=== PATIENT | female | born 1940 | race Caucasian/White ===

== ENCOUNTER 2023-03-08 16:35 | Inpatient (IN) | payer MEDICARE ==
[2023-03-08 17:22] LABS: #Eosinphils 0.1 thou/uL (0.0-0.7); #Monocytes 0.8 thou/uL (0.11-0.59); %Basophils 0.5 % (0.0-1.0); %Lymphocytes 9.6 % (21.0-51.0); %Monocytes 10.6 % (0.0-10.0); Hematocrit 37.8 % (36.0-47.0); Hemoglobin 12.7 g/dL (12.0-16.0); Mean Corpuscular HGB CONC 33.6 g/dL (32.0-36.0); Mean Corpuscular Hemoglobin 31.4 pg (27.0-31.0); Mean Corpuscular Volume 93.6 fl (78.0-98.0); Mean Platelet Volume 9.8 fL (7.4-10.4); Platelet Count 220 10x3/uL (130-400); RBC Distribution Width 13.9 % (11.5-14.5); Red Blood Cell (RBC) Count 4.04 mill/uL (4.20-5.40); White Blood Cell (WBC) Count 7.6 10x3/uL (4.8-10.8)
[2023-03-08 17:49] LABS: Bacteria/HPF 3+ HPF (None Seen); Bilirubin Negative (Negative); Blood, Urine Negative (Negative); CAUTI Indications for Culture Alt mental st,lethar; Clarity Clear (Clear); Glucose, Urine (Dipstick) Normal (Negative); Ketone, Urine Trace mg/dL (Negative); Leukocyte Negative Leu/uL (Negative); Nitrite Negative (Negative); Protein, Urine (Dipstick) Negative (Neg-Trace); RBC/HPF 0-3 HPF (0-3); Specific Gravity, Urine 1.012 (1.002-1.036); Squamous Epithelial 0-3 HPF (0-3); Urobilinogen Normal mg/dL (Less than 2); WBC/HPF 0-3 HPF (0-3)
[2023-03-08 17:51] LABS: Urine Culture Reflex No No
[2023-03-08] MEDS ORDERED: Boostrix 0.5 ML (Tdap) VIAL (>/=7 yrs of age) ONE (17:57)
[2023-03-08 18:14] LABS: ALT (SGPT) 9 U/L (8-55); AST (SGOT) 21 U/L (5-34); Albumin 3.8 g/dL (3.4-4.8); Alkaline Phosphatase 71 U/L (40-110); Anion Gap 17 mmol/L (10-20); BUN (Urea Nitrogen) 23 mg/dL (9.8-20.1); Calc. Creatinine Clearance 0 mL/min (70-130); Calcium 9.6 mg/dL (7.8-10.44); Carbon Dioxide 22 mmol/L (23-31); Chloride 101 mmol/L (98-107); Estimated GFR 58; Globulin 3.6 g/dL (2.4-3.5); Glucose 90 mg/dL (83-110); Lipase 7 U/L (8-78); Magnesium 1.8 mg/dL (1.6-2.6); Potassium 4.2 mmol/L (3.5-5.1); Protein, Total 7.4 g/dL (5.8-8.1); Sodium 136 mmol/L (136-145)
[2023-03-08 21:54] LABS: Troponin I 0.029 ng/mL (< 0.028)
[2023-03-08] MEDS ORDERED: Aspirin Chewable 81 MG TAB ONE (22:03)
[2023-03-08] MEDS ORDERED: Acetaminophen 325 MG TAB PO PRN (23:30)
[2023-03-08] MEDS ORDERED: Ondansetron PF 4 MG/2 ML Vial IVP PRN (23:30)
[2023-03-08] MEDS ORDERED: Ondansetron ODT 4 MG TAB SL PRN (23:30)
[2023-03-08] MEDS ORDERED: Furosemide 40 MG/4 ML VIAL SLOW IVP SCH (23:59)
[2023-03-09 00:10] VITALS: BMI 19.2
[2023-03-09] MEDS ORDERED: Lactated Ringer's 500 ML IV SCH ×2 (01:00→01:45)
[2023-03-09 01:05] LABS: Troponin I 0.041 ng/mL (< 0.028)
[2023-03-09 02:54] LABS: #Eosinphils 0.1 thou/uL (0.0-0.7); #Monocytes 0.8 thou/uL (0.11-0.59); #Neutrophils 5.6 thou/uL (1.40-6.50); %Basophils 0.5 % (0.0-1.0); %Eosinophils 1.1 % (0.0-10.0); %Lymphocytes 10.1 % (21.0-51.0); %Monocytes 11.5 % (0.0-10.0); %Neutrophils 76.1 % (42.0-75.0); Hematocrit 39.4 % (36.0-47.0); Hemoglobin 13.5 g/dL (12.0-16.0); Mean Corpuscular HGB CONC 34.3 g/dL (32.0-36.0); Mean Corpuscular Hemoglobin 31.5 pg (27.0-31.0); Mean Corpuscular Volume 91.8 fl (78.0-98.0); Platelet Count 234 10x3/uL (130-400); RBC Distribution Width 14.1 % (11.5-14.5); Red Blood Cell (RBC) Count 4.29 mill/uL (4.20-5.40); White Blood Cell (WBC) Count 7.3 10x3/uL (4.8-10.8)
[2023-03-09 03:18] LABS: ALT (SGPT) 8 U/L (8-55); AST (SGOT) 14 U/L (5-34); Albumin 3.9 g/dL (3.4-4.8); Alkaline Phosphatase 71 U/L (40-110); Anion Gap 14 mmol/L (10-20); BUN (Urea Nitrogen) 20 mg/dL (9.8-20.1); Calc. Creatinine Clearance 43 mL/min (70-130); Calcium 9.7 mg/dL (7.8-10.44); Carbon Dioxide 29 mmol/L (23-31); Chloride 100 mmol/L (98-107); Estimated GFR 63; Globulin 3.2 g/dL (2.4-3.5); Glucose 116 mg/dL (83-110); Potassium 3.2 mmol/L (3.5-5.1); Protein, Total 7.1 g/dL (5.8-8.1); Sodium 140 mmol/L (136-145)
[2023-03-09 03:21] LABS: Troponin I 0.039 ng/mL (< 0.028)
[2023-03-09] MEDS ORDERED: hydrALAZINE 20 MG/ML VIAL SLOW IVP PRN (04:15)
[2023-03-09] MEDS ORDERED: Potassium Chloride 20 MEQ TAB PO SCH (05:15)
[2023-03-09] MEDS ORDERED: Bupropion 150 MG XL TAB PO SCH (12:30)
[2023-03-09] MEDS ORDERED: Escitalopram Oxalate 20 mg Tablet PO SCH (12:30)
[2023-03-09] MEDS ORDERED: Amlodipine 5 MG TAB PO SCH (12:30)
[2023-03-09] MEDS: Atorvastatin Calcium 20 MG TAB PO SCH (21:18)
[2023-03-10 04:36] LABS: Anion Gap 11 mmol/L (10-20); BUN (Urea Nitrogen) 24 mg/dL (9.8-20.1); Calc. Creatinine Clearance 35 mL/min (70-130); Calcium 9.1 mg/dL (7.8-10.44); Carbon Dioxide 29 mmol/L (23-31); Chloride 101 mmol/L (98-107); Estimated GFR 50; Glucose 95 mg/dL (83-110); Potassium 3.6 mmol/L (3.5-5.1); Sodium 137 mmol/L (136-145)
[2023-03-10] MEDS: Levothyroxine Sodium 50 MCG TAB PO SCH (05:51)
[2023-03-10] MEDS ORDERED: Amlodipine 5 MG TAB PO SCH (09:00)
[2023-03-10] MEDS: Bupropion 150 MG XL TAB PO SCH (09:06)
[2023-03-10] MEDS: Ascorbic Acid 500 mg Chewable Tablet PO SCH (09:06)
[2023-03-10] MEDS: Oxybutynin ER 5 MG TAB PO SCH (09:06)
[2023-03-10] MEDS: Famotidine 20 MG TAB PO SCH (09:07)
[2023-03-10] MEDS: Escitalopram Oxalate 20 mg Tablet PO SCH (09:07)
[2023-03-10] MEDS: Cholecalciferol 1,000 UNITS (25 MCG) TAB PO SCH (09:07)
[2023-03-10] MEDS: Atorvastatin Calcium 20 MG TAB PO SCH (21:51)
[2023-03-11 04:18] LABS: Anion Gap 8 mmol/L (10-20); BUN (Urea Nitrogen) 24 mg/dL (9.8-20.1); Calc. Creatinine Clearance 34 mL/min (70-130); Calcium 9.4 mg/dL (7.8-10.44); Carbon Dioxide 33 mmol/L (23-31); Chloride 102 mmol/L (98-107); Estimated GFR 47; Glucose 96 mg/dL (83-110); Potassium 4.2 mmol/L (3.5-5.1); Sodium 139 mmol/L (136-145)
[2023-03-11] MEDS: Levothyroxine Sodium 50 MCG TAB PO SCH (05:48)
[2023-03-11] MEDS: Escitalopram Oxalate 20 mg Tablet PO SCH (09:31)
[2023-03-11] MEDS: Famotidine 20 MG TAB PO SCH (09:31)
[2023-03-11] MEDS: Losartan 25 MG TAB PO SCH (09:31)
[2023-03-11] MEDS: Ascorbic Acid 500 mg Chewable Tablet PO SCH (09:31)
[2023-03-11] MEDS: Polyethylene Glycol 3350 17 GM Packet PO SCH (09:31)
[2023-03-11] MEDS: Bupropion 150 MG XL TAB PO SCH (09:31)
[2023-03-11] MEDS: Oxybutynin ER 5 MG TAB PO SCH (09:31)
[2023-03-11] MEDS: Cholecalciferol 1,000 UNITS (25 MCG) TAB PO SCH (09:31)
[2023-03-11] MEDS: Atorvastatin Calcium 20 MG TAB PO SCH (19:48)
[2023-03-12 04:25] LABS: Anion Gap 10 mmol/L (10-20); BUN (Urea Nitrogen) 23 mg/dL (9.8-20.1); Calc. Creatinine Clearance 36 mL/min (70-130); Calcium 9.4 mg/dL (7.8-10.44); Carbon Dioxide 29 mmol/L (23-31); Chloride 103 mmol/L (98-107); Estimated GFR 52; Glucose 93 mg/dL (83-110); Potassium 3.9 mmol/L (3.5-5.1); Sodium 138 mmol/L (136-145)
[2023-03-12] MEDS: Levothyroxine Sodium 50 MCG TAB PO SCH (05:51)
[2023-03-12] MEDS: Oxybutynin ER 5 MG TAB PO SCH (09:13)
[2023-03-12] MEDS: Cholecalciferol 1,000 UNITS (25 MCG) TAB PO SCH (09:13)
[2023-03-12] MEDS: Fludrocortisone Acetate 0.1 MG TAB PO SCH (09:13)
[2023-03-12] MEDS: Bupropion 150 MG XL TAB PO SCH (09:13)
[2023-03-12] MEDS: Escitalopram Oxalate 20 mg Tablet PO SCH (09:13)
[2023-03-12] MEDS: Losartan 25 MG TAB PO SCH (09:13)
[2023-03-12] MEDS: Polyethylene Glycol 3350 17 GM Packet PO SCH (09:13)
[2023-03-12] MEDS: Famotidine 20 MG TAB PO SCH (09:13)
[2023-03-12] MEDS: Ascorbic Acid 500 mg Chewable Tablet PO SCH (09:13)
[2023-03-12] MEDS ORDERED: Diphenoxylate HCl/Atropine Tablet PO SCH (18:45)
[2023-03-12] MEDS: Loperamide HCl 2 MG CAP PO SCH (19:00)
[2023-03-12] MEDS: Atorvastatin Calcium 20 MG TAB PO SCH (20:24)
[2023-03-13 05:21] LABS: Anion Gap 11 mmol/L (10-20); BUN (Urea Nitrogen) 26 mg/dL (9.8-20.1); Calc. Creatinine Clearance 28 mL/min (70-130); Calcium 9.3 mg/dL (7.8-10.44); Carbon Dioxide 27 mmol/L (23-31); Chloride 103 mmol/L (98-107); Estimated GFR 38; Glucose 82 mg/dL (83-110); Sodium 137 mmol/L (136-145)
[2023-03-13] MEDS: Levothyroxine Sodium 50 MCG TAB PO SCH (05:35)
[2023-03-13] MEDS: Ascorbic Acid 500 mg Chewable Tablet PO SCH (08:17)
[2023-03-13] MEDS: Escitalopram Oxalate 20 mg Tablet PO SCH (08:17)
[2023-03-13] MEDS: Polyethylene Glycol 3350 17 GM Packet PO SCH (08:17)
[2023-03-13] MEDS: Cholecalciferol 1,000 UNITS (25 MCG) TAB PO SCH (08:17)
[2023-03-13] MEDS: Oxybutynin ER 5 MG TAB PO SCH (08:17)
[2023-03-13] MEDS: Bupropion 150 MG XL TAB PO SCH (08:17)
[2023-03-13] MEDS: Losartan 25 MG TAB PO SCH (08:17)
[2023-03-13] MEDS: Famotidine 20 MG TAB PO SCH (08:17)
[2023-03-13] MEDS: Fludrocortisone Acetate 0.1 MG TAB PO SCH (08:20)
[2023-03-13] MEDS: Atorvastatin Calcium 20 MG TAB PO SCH (21:00)
[2023-03-14 04:19] LABS: Anion Gap 11 mmol/L (10-20); BUN (Urea Nitrogen) 26 mg/dL (9.8-20.1); Calc. Creatinine Clearance 33 mL/min (70-130); Carbon Dioxide 27 mmol/L (23-31); Chloride 104 mmol/L (98-107); Estimated GFR 47; Glucose 90 mg/dL (83-110); Sodium 138 mmol/L (136-145)
[2023-03-14] MEDS: Levothyroxine Sodium 50 MCG TAB PO SCH (05:14)
[2023-03-14] MEDS: Cholecalciferol 1,000 UNITS (25 MCG) TAB PO SCH (08:09)
[2023-03-14] MEDS: Polyethylene Glycol 3350 17 GM Packet PO SCH (08:09)
[2023-03-14] MEDS: Fludrocortisone Acetate 0.1 MG TAB PO SCH (08:09)
[2023-03-14] MEDS: Bupropion 150 MG XL TAB PO SCH (08:09)
[2023-03-14] MEDS: Ascorbic Acid 500 mg Chewable Tablet PO SCH (08:09)
[2023-03-14] MEDS: Oxybutynin ER 5 MG TAB PO SCH (08:10)
[2023-03-14] MEDS: Famotidine 20 MG TAB PO SCH (08:10)
[2023-03-14] MEDS: Escitalopram Oxalate 20 mg Tablet PO SCH (08:10)
[2023-03-14] MEDS: Losartan 25 MG TAB PO SCH (08:10)
[2023-03-14] MEDS: Atorvastatin Calcium 20 MG TAB PO SCH (21:32)
[2023-03-15 04:31] LABS: Anion Gap 11 mmol/L (10-20); BUN (Urea Nitrogen) 26 mg/dL (9.8-20.1); Calc. Creatinine Clearance 33 mL/min (70-130); Calcium 9.1 mg/dL (7.8-10.44); Carbon Dioxide 29 mmol/L (23-31); Chloride 104 mmol/L (98-107); Estimated GFR 46; Glucose 97 mg/dL (83-110); Potassium 4.1 mmol/L (3.5-5.1); Sodium 140 mmol/L (136-145)
[2023-03-15] MEDS: Levothyroxine Sodium 50 MCG TAB PO SCH (06:29)
[2023-03-15 08:24] LABS: #Basophils 0.1 thou/uL (0.0-0.2); #Eosinphils 0.2 thou/uL (0.0-0.7); #Monocytes 0.7 thou/uL (0.11-0.59); #Neutrophils 3.9 thou/uL (1.40-6.50); %Eosinophils 3.3 % (0.0-10.0); %Lymphocytes 15.2 % (21.0-51.0); %Monocytes 11.8 % (0.0-10.0); %Neutrophils 67.8 % (42.0-75.0); Hematocrit 36.2 % (36.0-47.0); Hemoglobin 11.7 g/dL (12.0-16.0); Mean Corpuscular HGB CONC 32.3 g/dL (32.0-36.0); Mean Corpuscular Hemoglobin 31.6 pg (27.0-31.0); Mean Corpuscular Volume 97.8 fl (78.0-98.0); Mean Platelet Volume 9.4 fL (7.4-10.4); Platelet Count 257 10x3/uL (130-400); RBC Distribution Width 13.8 % (11.5-14.5); White Blood Cell (WBC) Count 5.7 10x3/uL (4.8-10.8)
[2023-03-15] MEDS ORDERED: Midodrine HCl 5 MG TAB PO SCH ×2 (09:15→21:00)
[2023-03-15] MEDS ORDERED: Iopamidol 370 76% 100 ML VIAL ONE (10:19)
[2023-03-15] MEDS ORDERED: CEFAZOLIN 2 GM VIAL ONE (10:53)
[2023-03-15] MEDS ORDERED: Gentamicin 80 MG/2 ML VIAL ONE (10:53)
[2023-03-15] MEDS ORDERED: CEFAZOLIN 1 GM VIAL ONE (10:53)
[2023-03-15] MEDS ORDERED: Lidocaine 1% (PF) 30 ML VIAL ONE (10:53)
[2023-03-15] MEDS: Ascorbic Acid 500 mg Chewable Tablet PO SCH (11:03)
[2023-03-15] MEDS: Bupropion 150 MG XL TAB PO SCH (11:03)
[2023-03-15] MEDS: Oxybutynin ER 5 MG TAB PO SCH (11:04)
[2023-03-15] MEDS: Escitalopram Oxalate 20 mg Tablet PO SCH (11:05)
[2023-03-15] MEDS: Cholecalciferol 1,000 UNITS (25 MCG) TAB PO SCH (11:05)
[2023-03-15] MEDS: Famotidine 20 MG TAB PO SCH (11:06)
[2023-03-15] MEDS: Polyethylene Glycol 3350 17 GM Packet PO SCH (11:07)
[2023-03-15] MEDS: Losartan 25 MG TAB PO SCH (11:08)
[2023-03-15] MEDS: Fludrocortisone Acetate 0.1 MG TAB PO SCH (11:14)
[2023-03-15] MEDS ORDERED: Midazolam HCl 2 mg/2 ml Vial ONE (11:44)
[2023-03-15] MEDS ORDERED: hydrALAZINE 20 MG/ML VIAL ONE (12:10)
[2023-03-15] MEDS: Atorvastatin Calcium 20 MG TAB PO SCH (21:19)
[2023-03-16] MEDS: Levothyroxine Sodium 50 MCG TAB PO SCH (05:39)
[2023-03-16] MEDS: Acetaminophen 325 MG TAB PO PRN (05:41)
[2023-03-16 06:02] LABS: #Basophils 0.1 thou/uL (0.0-0.2); #Eosinphils 0.1 thou/uL (0.0-0.7); #Monocytes 0.8 thou/uL (0.11-0.59); #Neutrophils 4.9 thou/uL (1.40-6.50); %Basophils 0.9 % (0.0-1.0); %Eosinophils 1.9 % (0.0-10.0); %Lymphocytes 12.2 % (21.0-51.0); %Monocytes 12.3 % (0.0-10.0); %Neutrophils 72.3 % (42.0-75.0); Hematocrit 36.9 % (36.0-47.0); Hemoglobin 11.8 g/dL (12.0-16.0); Mean Corpuscular Hemoglobin 31.5 pg (27.0-31.0); Mean Corpuscular Volume 98.4 fl (78.0-98.0); Mean Platelet Volume 9.4 fL (7.4-10.4); Platelet Count 259 10x3/uL (130-400); RBC Distribution Width 13.9 % (11.5-14.5); Red Blood Cell (RBC) Count 3.75 mill/uL (4.20-5.40); White Blood Cell (WBC) Count 6.8 10x3/uL (4.8-10.8)
[2023-03-16 06:28] LABS: Anion Gap 10 mmol/L (10-20); BUN (Urea Nitrogen) 24 mg/dL (9.8-20.1); Calc. Creatinine Clearance 34 mL/min (70-130); Calcium 9.2 mg/dL (7.8-10.44); Carbon Dioxide 27 mmol/L (23-31); Chloride 106 mmol/L (98-107); Estimated GFR 49; Glucose 85 mg/dL (83-110); Sodium 139 mmol/L (136-145)
[2023-03-16] MEDS ORDERED: Cosyntropin 250 MCG VIAL SLOW IVP SCH (08:45)
[2023-03-16] MEDS ORDERED: Sodium Chloride 0.9% 1,000 ML IV SCH ×2 (09:00→10:00)
[2023-03-16] MEDS: Bupropion 150 MG XL TAB PO SCH (10:39)
[2023-03-16] MEDS: Polyethylene Glycol 3350 17 GM Packet PO SCH (10:39)
[2023-03-16] MEDS: Midodrine HCl 5 MG TAB PO SCH ×2 (10:39→21:26)
[2023-03-16] MEDS: Oxybutynin ER 5 MG TAB PO SCH (10:39)
[2023-03-16] MEDS: Ascorbic Acid 500 mg Chewable Tablet PO SCH (10:40)
[2023-03-16] MEDS: Famotidine 20 MG TAB PO SCH (10:41)
[2023-03-16] MEDS: Escitalopram Oxalate 10 mg Tablet PO SCH (10:41)
[2023-03-16] MEDS: Cholecalciferol 1,000 UNITS (25 MCG) TAB PO SCH (10:41)
[2023-03-16] MEDS: Atorvastatin Calcium 20 MG TAB PO SCH (21:26)
[2023-03-17] MEDS: Levothyroxine Sodium 50 MCG TAB PO SCH (05:49)
[2023-03-17] MEDS ORDERED: Midodrine HCl 5 MG TAB PO SCH (09:00)
[2023-03-17 09:14] LABS: Anion Gap 10 mmol/L (10-20); BUN (Urea Nitrogen) 18 mg/dL (9.8-20.1); Calc. Creatinine Clearance 39 mL/min (70-130); Calcium 9.4 mg/dL (7.8-10.44); Carbon Dioxide 29 mmol/L (23-31); Chloride 105 mmol/L (98-107); Estimated GFR 57; Glucose 123 mg/dL (83-110); Potassium 3.7 mmol/L (3.5-5.1); Sodium 140 mmol/L (136-145)
[2023-03-17] MEDS: Oxybutynin ER 5 MG TAB PO SCH (10:06)
[2023-03-17] MEDS: Cholecalciferol 1,000 UNITS (25 MCG) TAB PO SCH (10:06)
[2023-03-17] MEDS: Famotidine 20 MG TAB PO SCH (10:07)
[2023-03-17] MEDS: Escitalopram Oxalate 10 mg Tablet PO SCH (10:07)
[2023-03-17] MEDS: Bupropion 150 MG XL TAB PO SCH (10:07)
[2023-03-17] MEDS: Polyethylene Glycol 3350 17 GM Packet PO SCH (10:08)
[2023-03-17] MEDS: Ascorbic Acid 500 mg Chewable Tablet PO SCH (10:08)
[2023-03-17] MEDS: Midodrine HCl 5 MG TAB PO SCH ×2 (10:38→22:01)
[2023-03-17] MEDS: Sodium Chloride 0.9% 1,000 ML IV SCH ×2 (16:10→22:04)
[2023-03-17] MEDS: Atorvastatin Calcium 20 MG TAB PO SCH (22:00)
[2023-03-18] MEDS: Acetaminophen 325 MG TAB PO PRN (04:05)
[2023-03-18] MEDS: Sodium Chloride 0.9% 1,000 ML IV SCH ×2 (04:06→11:07)
[2023-03-18 05:52] LABS: Anion Gap 9 mmol/L (10-20); BUN (Urea Nitrogen) 16 mg/dL (9.8-20.1); Calc. Creatinine Clearance 40 mL/min (70-130); Calcium 8.9 mg/dL (7.8-10.44); Carbon Dioxide 26 mmol/L (23-31); Chloride 107 mmol/L (98-107); Estimated GFR 59; Glucose 81 mg/dL (83-110); Potassium 3.7 mmol/L (3.5-5.1); Sodium 138 mmol/L (136-145)
[2023-03-18] MEDS: Levothyroxine Sodium 50 MCG TAB PO SCH (06:13)
[2023-03-18] MEDS: Bupropion 150 MG XL TAB PO SCH (09:51)
[2023-03-18] MEDS: Ascorbic Acid 500 mg Chewable Tablet PO SCH (09:51)
[2023-03-18] MEDS: Midodrine HCl 5 MG TAB PO SCH (09:52)
[2023-03-18] MEDS: Cholecalciferol 1,000 UNITS (25 MCG) TAB PO SCH (09:52)
[2023-03-18] MEDS: Oxybutynin ER 5 MG TAB PO SCH (09:52)
[2023-03-18] MEDS: Escitalopram Oxalate 10 mg Tablet PO SCH (09:52)
[2023-03-18] MEDS: Famotidine 20 MG TAB PO SCH (09:52)
[2023-03-18] MEDS: Polyethylene Glycol 3350 17 GM Packet PO SCH (09:53)
[2023-03-18 15:33] VITALS: TEMP 98.1
[2023-03-18 16:06] VITALS: BP 146/70
[2023-03-18] MEDS ORDERED: Midodrine HCl 5 MG TAB PO SCH (21:00)
== END 2023-03-18 17:55 | disposition home health service (06) | DRG 243 ==
LOC: ERS 16:35 → 2NO 23:03 → INTOOBSV 23:03 → OBSVTOIN 03-09 14:37
PROVIDERS: ADMIT Family Medicine; ATTEND Family Medicine
PROC: 0JH606Z Insertion of Pacemaker, Dual Chamber into Chest Subcutaneous Tissue and Fascia, Open Approach (ICD-10-PCS; principal; 2023-03-15)
PROC: 02H60JZ Insertion of Pacemaker Lead into Right Atrium, Open Approach (ICD-10-PCS; 2023-03-15)
PROC: 02HK0JZ Insertion of Pacemaker Lead into Right Ventricle, Open Approach (ICD-10-PCS; 2023-03-15)
PROC: 0HQ0XZZ Repair Scalp Skin, External Approach (ICD-10-PCS; 2023-03-15)
DX: I44.2 Atrioventricular block, complete (principal); J98.11 Atelectasis; N17.9 Acute kidney failure, unspecified; I49.5 Sick sinus syndrome; I10 Essential (primary) hypertension; W18.30XA Fall on same level, unspecified, initial encounter; F10.90 Alcohol use, unspecified, uncomplicated; S09.90XA Unspecified injury of head, initial encounter; I27.21 Secondary pulmonary arterial hypertension; J47.9 Bronchiectasis, uncomplicated; S01.01XA Laceration without foreign body of scalp, initial encounter; R00.0 Tachycardia, unspecified; R77.8 Other specified abnormalities of plasma proteins; I35.0 Nonrheumatic aortic (valve) stenosis; G47.33 Obstructive sleep apnea (adult) (pediatric); I44.7 Left bundle-branch block, unspecified; Y92.129 Unspecified place in nursing home as the place of occurrence of the external cause; S61.412A Laceration without foreign body of left hand, initial encounter; I95.1 Orthostatic hypotension; F41.9 Anxiety disorder, unspecified; F32.A Depression, unspecified; E03.9 Hypothyroidism, unspecified; Z85.3 Personal history of malignant neoplasm of breast; Z90.13 Acquired absence of bilateral breasts and nipples; Z91.011 Allergy to milk products; Z96.643 Presence of artificial hip joint, bilateral
CPT/HCPCS: 12001; 33208; 36005; 36415; 36416; 70450; 71045; 71275; 72125; 75820; 80048; 80053; 80400; 81001; 83690; 83735; 83880; 84443; 84484; 85025; 90471; 90715; 93005; 93010; 93306; 93798; 93880; 94760; 96360; 96361; 96372; 96374; 99152; 99153; C1769; C1785; C1894; C1898; G0378; J0360; J0690; J0834; J1580; J1650; J1940; J2001; J2250; J7050; J7120; Q9967

== ENCOUNTER 2023-06-07 18:28 | Inpatient (IN) | payer MEDICARE ==
[2023-06-07 19:20] LABS: #Eosinphils 0.1 thou/uL (0.0-0.7); #Monocytes 0.7 thou/uL (0.11-0.59); #Neutrophils 4.3 thou/uL (1.40-6.50); %Basophils 0.5 % (0.0-1.0); %Eosinophils 0.8 % (0.0-10.0); %Lymphocytes 12.9 % (21.0-51.0); %Monocytes 12.5 % (0.0-10.0); %Neutrophils 72.8 % (42.0-75.0); Hematocrit 31.7 % (36.0-47.0); Hemoglobin 10.1 g/dL (12.0-16.0); Mean Corpuscular HGB CONC 31.9 g/dL (32.0-36.0); Mean Corpuscular Volume 103.6 fl (78.0-98.0); Mean Platelet Volume 9.9 fL (7.4-10.4); Platelet Count 192 10x3/uL (130-400); RBC Distribution Width 13.2 % (11.5-14.5); Red Blood Cell (RBC) Count 3.06 mill/uL (4.20-5.40); White Blood Cell (WBC) Count 5.9 10x3/uL (4.8-10.8)
[2023-06-07 19:32] LABS: PTT 34.6 sec (22.9-36.1); Prothrombin Time 13.4 sec (12.0-14.7)
[2023-06-07 19:54] LABS: ALT (SGPT) 7 U/L (8-55); AST (SGOT) 15 U/L (5-34); Albumin 3.6 g/dL (3.4-4.8); Alkaline Phosphatase 70 U/L (40-110); Anion Gap 14 mmol/L (10-20); BUN (Urea Nitrogen) 31 mg/dL (9.8-20.1); Bilirubin, Total 0.5 mg/dL (0.2-1.2); Calc. Creatinine Clearance 0 mL/min (70-130); Carbon Dioxide 27 mmol/L (23-31); Chloride 106 mmol/L (98-107); Estimated GFR 27; Globulin 2.8 g/dL (2.4-3.5); Glucose 103 mg/dL (83-110); Potassium 4.6 mmol/L (3.5-5.1); Protein, Total 6.4 g/dL (5.8-8.1); Sodium 142 mmol/L (136-145)
[2023-06-07] MEDS ORDERED: Ondansetron PF 4 MG/2 ML Vial IVP PRN (22:44)
[2023-06-07] MEDS ORDERED: Ondansetron ODT 4 MG TAB PO PRN (22:44)
[2023-06-07] MEDS ORDERED: Labetalol HCl 100 MG/20 ML VIAL ONE (23:10)
[2023-06-08 01:23] VITALS: BMI 19.5
[2023-06-08] MEDS: Sodium Chloride 0.9% 1,000 ML IV SCH ×2 (01:37→07:06)
[2023-06-08] MEDS: Levothyroxine Sodium 50 MCG TAB PO SCH (05:28)
[2023-06-08 05:29] LABS: #Eosinphils 0.1 thou/uL (0.0-0.7); #Monocytes 0.6 thou/uL (0.11-0.59); #Neutrophils 3.9 thou/uL (1.40-6.50); %Basophils 0.5 % (0.0-1.0); %Eosinophils 1.8 % (0.0-10.0); %Lymphocytes 17.9 % (21.0-51.0); %Monocytes 11.1 % (0.0-10.0); %Neutrophils 68.3 % (42.0-75.0); Hemoglobin 9.9 g/dL (12.0-16.0); Mean Corpuscular Hemoglobin 33.1 pg (27.0-31.0); Mean Platelet Volume 9.4 fL (7.4-10.4); Platelet Count 179 10x3/uL (130-400); RBC Distribution Width 13.1 % (11.5-14.5); Red Blood Cell (RBC) Count 2.99 mill/uL (4.20-5.40); White Blood Cell (WBC) Count 5.7 10x3/uL (4.8-10.8)
[2023-06-08 05:33] LABS: Mean Corpuscular Volume 100.3 fl (78.0-98.0)
[2023-06-08 05:49] LABS: Phosphorus 3.1 mg/dL (2.3-4.7)
[2023-06-08 05:53] LABS: ALT (SGPT) 7 U/L (8-55); AST (SGOT) 14 U/L (5-34); Albumin 3.1 g/dL (3.4-4.8); Alkaline Phosphatase 65 U/L (40-110); Anion Gap 12 mmol/L (10-20); BUN (Urea Nitrogen) 23 mg/dL (9.8-20.1); Bilirubin, Total 0.5 mg/dL (0.2-1.2); Calc. Creatinine Clearance 36 mL/min (70-130); Calcium 8.4 mg/dL (7.8-10.44); Carbon Dioxide 22 mmol/L (23-31); Chloride 110 mmol/L (98-107); Estimated GFR 51; Globulin 2.7 g/dL (2.4-3.5); Glucose 83 mg/dL (83-110); Magnesium 1.7 mg/dL (1.6-2.6); Potassium 3.8 mmol/L (3.5-5.1); Protein, Total 5.8 g/dL (5.8-8.1); Sodium 140 mmol/L (136-145)
[2023-06-08] MEDS ORDERED: Oxybutynin 5 MG TAB PO SCH (09:00)
[2023-06-08] MEDS ORDERED: Cholecalciferol 1,000 UNITS (25 MCG) TAB PO SCH (09:00)
[2023-06-08] MEDS ORDERED: CRANBERRY FRUIT EXTRACT 200 MG PO SCH (09:00)
[2023-06-08] MEDS: Calcium Carbonate 600 MG + Vit D TAB PO SCH (09:13)
[2023-06-08] MEDS: Escitalopram Oxalate 10 mg Tablet PO SCH (09:14)
[2023-06-08] MEDS: Oxybutynin ER 5 MG TAB PO SCH (09:14)
[2023-06-08] MEDS: Famotidine 20 MG TAB PO SCH (09:14)
[2023-06-08] MEDS: BuPROPion XL 150 MG ER.TAB PO SCH (09:14)
[2023-06-08] MEDS: Atorvastatin Calcium 20 MG TAB PO SCH (09:15)
[2023-06-08] MEDS: Ferrous Sulfate 325 MG TAB PO SCH (09:15)
[2023-06-08] MEDS: Losartan 25 MG TAB PO SCH (09:15)
[2023-06-08] MEDS: Fludrocortisone Acetate 0.1 MG TAB PO SCH (09:15)
[2023-06-08] MEDS: Cyanocobalamin (Vitamin B-12) 1,000 MCG TAB PO SCH (09:15)
[2023-06-08] MEDS: Ascorbic Acid 500 mg Chewable Tablet PO SCH (09:15)
[2023-06-08] MEDS: Midodrine HCl 5 MG TAB PO SCH ×2 (09:18→22:10)
[2023-06-08] MEDS: Donepezil HCl 5 MG TAB PO SCH (09:20)
[2023-06-08] MEDS ORDERED: Acetaminophen 325 MG TAB PO PRN (10:18)
[2023-06-08] MEDS ORDERED: Albuterol 200 PUFF (6.7GM INHALER) INH PRN (10:18)
[2023-06-08] MEDS ORDERED: Benzonatate 100 MG CAP PO PRN (10:18)
[2023-06-08] MEDS ORDERED: Acetaminophen 650 MG Suppository PR PRN (10:18)
[2023-06-08] MEDS ORDERED: Lactated Ringer's 1,000 ML IV SCH (13:30)
[2023-06-08 14:21] LABS: Bilirubin Negative (Negative); Blood, Urine Negative (Negative); Glucose, Urine (Dipstick) Normal (Negative); Ketone, Urine Negative (Negative); Leukocyte 25 Leu/uL (Negative); Nitrite Negative (Negative); Protein, Urine (Dipstick) Negative (Neg-Trace); RBC/HPF None Seen HPF (0-3); Specific Gravity, Urine 1.016 (1.002-1.036); Squamous Epithelial 0-3 HPF (0-3); Urobilinogen Normal mg/dL (Less than 2)
[2023-06-08 14:37] LABS: Clarity Cloudy (Clear)
[2023-06-08 14:38] LABS: Bacteria/HPF 2+ HPF (None Seen)
[2023-06-08] MEDS: hydrALAZINE 20 MG/ML VIAL SLOW IVP PRN (16:31)
[2023-06-08] MEDS: Melatonin 3 MG TAB PO SCH (22:10)
[2023-06-09 05:11] LABS: Anion Gap 14 mmol/L (10-20); BUN (Urea Nitrogen) 20 mg/dL (9.8-20.1); Calc. Creatinine Clearance 37 mL/min (70-130); Calcium 8.7 mg/dL (7.8-10.44); Carbon Dioxide 23 mmol/L (23-31); Chloride 106 mmol/L (98-107); Estimated GFR 54; Glucose 87 mg/dL (83-110); Potassium 3.9 mmol/L (3.5-5.1); Sodium 139 mmol/L (136-145)
[2023-06-09] MEDS: Levothyroxine Sodium 50 MCG TAB PO SCH (05:31)
[2023-06-09] MEDS: Cyanocobalamin (Vitamin B-12) 1,000 MCG TAB PO SCH (09:46)
[2023-06-09] MEDS: Oxybutynin ER 5 MG TAB PO SCH (09:47)
[2023-06-09] MEDS: Midodrine HCl 5 MG TAB PO SCH ×2 (09:48→20:35)
[2023-06-09] MEDS: Folic Acid 1 MG TAB PO SCH (09:48)
[2023-06-09] MEDS: Losartan 25 MG TAB PO SCH (09:48)
[2023-06-09] MEDS: Famotidine 20 MG TAB PO SCH (09:48)
[2023-06-09] MEDS: Ferrous Sulfate 325 MG TAB PO SCH (09:48)
[2023-06-09] MEDS: Cholecalciferol (Vitamin D3) 400 UNITS TAB PO SCH (09:48)
[2023-06-09] MEDS: Zinc Sulfate 220 MG CAP PO SCH (09:48)
[2023-06-09] MEDS: Atorvastatin Calcium 20 MG TAB PO SCH (09:49)
[2023-06-09] MEDS: Donepezil HCl 5 MG TAB PO SCH (09:49)
[2023-06-09] MEDS: Calcium Carbonate 600 MG + Vit D TAB PO SCH (09:49)
[2023-06-09] MEDS: Escitalopram Oxalate 10 mg Tablet PO SCH (09:49)
[2023-06-09] MEDS: Fludrocortisone Acetate 0.1 MG TAB PO SCH (09:49)
[2023-06-09] MEDS: BuPROPion XL 150 MG ER.TAB PO SCH (09:49)
[2023-06-09] MEDS: Ascorbic Acid 500 mg Chewable Tablet PO SCH (09:49)
[2023-06-09] MEDS: hydrALAZINE 25 MG TAB PO SCH ×2 (15:01→20:35)
[2023-06-09] MEDS: Melatonin 3 MG TAB PO SCH (20:35)
[2023-06-10] MEDS: Levothyroxine Sodium 50 MCG TAB PO SCH (05:42)
[2023-06-10] MEDS: Oxybutynin ER 5 MG TAB PO SCH (09:45)
[2023-06-10] MEDS: Fludrocortisone Acetate 0.1 MG TAB PO SCH ×2 (09:45→21:11)
[2023-06-10] MEDS ORDERED: hydrALAZINE 25 MG TAB PO SCH (09:45)
[2023-06-10] MEDS: Famotidine 20 MG TAB PO SCH (09:46)
[2023-06-10] MEDS: Zinc Sulfate 220 MG CAP PO SCH (09:46)
[2023-06-10] MEDS: BuPROPion XL 150 MG ER.TAB PO SCH (09:46)
[2023-06-10] MEDS: Calcium Carbonate 600 MG + Vit D TAB PO SCH (09:46)
[2023-06-10] MEDS: Folic Acid 1 MG TAB PO SCH (09:46)
[2023-06-10] MEDS: Ascorbic Acid 500 mg Chewable Tablet PO SCH (09:46)
[2023-06-10] MEDS: Donepezil HCl 5 MG TAB PO SCH (09:47)
[2023-06-10] MEDS: Ferrous Sulfate 325 MG TAB PO SCH (09:48)
[2023-06-10] MEDS: Losartan 25 MG TAB PO SCH (09:49)
[2023-06-10] MEDS: Cholecalciferol (Vitamin D3) 400 UNITS TAB PO SCH (09:49)
[2023-06-10] MEDS: Escitalopram Oxalate 10 mg Tablet PO SCH (09:49)
[2023-06-10] MEDS: Cyanocobalamin (Vitamin B-12) 1,000 MCG TAB PO SCH (09:49)
[2023-06-10] MEDS: Atorvastatin Calcium 20 MG TAB PO SCH (09:49)
[2023-06-10] MEDS: Midodrine HCl 5 MG TAB PO SCH ×2 (09:49→21:10)
[2023-06-10] MEDS: hydrALAZINE 25 MG TAB PO SCH ×4 (09:58→21:11)
[2023-06-10] MEDS: Melatonin 3 MG TAB PO SCH (21:12)
[2023-06-11] MEDS: Levothyroxine Sodium 50 MCG TAB PO SCH (06:17)
[2023-06-11] MEDS: Oxybutynin ER 5 MG TAB PO SCH (10:23)
[2023-06-11] MEDS: hydrALAZINE 25 MG TAB PO SCH ×4 (10:23→22:16)
[2023-06-11] MEDS: Cholecalciferol (Vitamin D3) 400 UNITS TAB PO SCH (10:24)
[2023-06-11] MEDS: Ferrous Sulfate 325 MG TAB PO SCH (10:24)
[2023-06-11] MEDS: Cyanocobalamin (Vitamin B-12) 1,000 MCG TAB PO SCH (10:24)
[2023-06-11] MEDS: Famotidine 20 MG TAB PO SCH (10:24)
[2023-06-11] MEDS: Donepezil HCl 5 MG TAB PO SCH (10:25)
[2023-06-11] MEDS: Folic Acid 1 MG TAB PO SCH (10:25)
[2023-06-11] MEDS: Ascorbic Acid 500 mg Chewable Tablet PO SCH (10:25)
[2023-06-11] MEDS: Losartan 25 MG TAB PO SCH (10:25)
[2023-06-11] MEDS: Fludrocortisone Acetate 0.1 MG TAB PO SCH ×2 (10:25→22:16)
[2023-06-11] MEDS: Atorvastatin Calcium 20 MG TAB PO SCH (10:25)
[2023-06-11] MEDS: Midodrine HCl 5 MG TAB PO SCH ×2 (10:25→22:16)
[2023-06-11] MEDS: Calcium Carbonate 600 MG + Vit D TAB PO SCH (10:25)
[2023-06-11] MEDS: Escitalopram Oxalate 10 mg Tablet PO SCH (10:25)
[2023-06-11] MEDS: Zinc Sulfate 220 MG CAP PO SCH (10:25)
[2023-06-11] MEDS: BuPROPion XL 150 MG ER.TAB PO SCH (10:26)
[2023-06-11] MEDS: Melatonin 3 MG TAB PO SCH (22:15)
[2023-06-11] MEDS ORDERED: Digoxin 0.5 MG/2 ML AMP SLOW IVP SCH (22:45)
[2023-06-12] MEDS: Levothyroxine Sodium 50 MCG TAB PO SCH (06:00)
[2023-06-12] MEDS: hydrALAZINE 20 MG/ML VIAL SLOW IVP PRN (06:10)
[2023-06-12] MEDS: Cyanocobalamin (Vitamin B-12) 1,000 MCG TAB PO SCH (08:15)
[2023-06-12] MEDS: Ascorbic Acid 500 mg Chewable Tablet PO SCH (08:15)
[2023-06-12] MEDS: Zinc Sulfate 220 MG CAP PO SCH (08:15)
[2023-06-12] MEDS: Atorvastatin Calcium 20 MG TAB PO SCH (08:16)
[2023-06-12] MEDS: Calcium Carbonate 600 MG + Vit D TAB PO SCH (08:16)
[2023-06-12] MEDS: Famotidine 20 MG TAB PO SCH (08:16)
[2023-06-12] MEDS: BuPROPion XL 150 MG ER.TAB PO SCH (08:16)
[2023-06-12] MEDS: Midodrine HCl 5 MG TAB PO SCH ×2 (08:16→21:16)
[2023-06-12] MEDS: Losartan 25 MG TAB PO SCH (08:16)
[2023-06-12] MEDS: Ferrous Sulfate 325 MG TAB PO SCH (08:16)
[2023-06-12] MEDS: Escitalopram Oxalate 10 mg Tablet PO SCH (08:17)
[2023-06-12] MEDS: Cholecalciferol (Vitamin D3) 400 UNITS TAB PO SCH (08:17)
[2023-06-12] MEDS: Oxybutynin ER 5 MG TAB PO SCH (08:17)
[2023-06-12] MEDS: Folic Acid 1 MG TAB PO SCH (08:17)
[2023-06-12] MEDS: hydrALAZINE 25 MG TAB PO SCH ×4 (08:17→21:16)
[2023-06-12] MEDS: Fludrocortisone Acetate 0.1 MG TAB PO SCH ×2 (08:18→21:16)
[2023-06-12] MEDS: Donepezil HCl 5 MG TAB PO SCH (08:18)
[2023-06-12] MEDS: Melatonin 3 MG TAB PO SCH (21:16)
[2023-06-13] MEDS: Levothyroxine Sodium 50 MCG TAB PO SCH (06:24)
[2023-06-13 07:18] LABS: Hematocrit 33.6 % (36.0-47.0); Hemoglobin 11.1 g/dL (12.0-16.0); Platelet Count 275 10x3/uL (130-400)
[2023-06-13] MEDS: Cyanocobalamin (Vitamin B-12) 1,000 MCG TAB PO SCH (08:11)
[2023-06-13] MEDS: Famotidine 20 MG TAB PO SCH (08:12)
[2023-06-13] MEDS: Zinc Sulfate 220 MG CAP PO SCH (08:12)
[2023-06-13] MEDS: Midodrine HCl 5 MG TAB PO SCH ×2 (08:12→21:23)
[2023-06-13] MEDS: Calcium Carbonate 600 MG + Vit D TAB PO SCH (08:12)
[2023-06-13] MEDS: Oxybutynin ER 5 MG TAB PO SCH (08:12)
[2023-06-13] MEDS: Folic Acid 1 MG TAB PO SCH (08:12)
[2023-06-13] MEDS: Cholecalciferol (Vitamin D3) 400 UNITS TAB PO SCH (08:12)
[2023-06-13] MEDS: hydrALAZINE 25 MG TAB PO SCH ×4 (08:12→21:22)
[2023-06-13] MEDS: Ascorbic Acid 500 mg Chewable Tablet PO SCH (08:12)
[2023-06-13] MEDS: Fludrocortisone Acetate 0.1 MG TAB PO SCH ×2 (08:13→21:22)
[2023-06-13] MEDS: BuPROPion XL 150 MG ER.TAB PO SCH (08:13)
[2023-06-13] MEDS: Ferrous Sulfate 325 MG TAB PO SCH (08:13)
[2023-06-13] MEDS: Escitalopram Oxalate 10 mg Tablet PO SCH (08:13)
[2023-06-13] MEDS: Atorvastatin Calcium 20 MG TAB PO SCH (08:13)
[2023-06-13] MEDS: Donepezil HCl 5 MG TAB PO SCH (08:16)
[2023-06-13] MEDS ORDERED: Senokot S 8.6-50 MG TAB PO SCH (12:00)
[2023-06-13] MEDS ORDERED: Digoxin 0.5 MG/2 ML AMP SLOW IVP SCH (16:00)
[2023-06-13] MEDS: Melatonin 3 MG TAB PO SCH (21:23)
[2023-06-13] MEDS: Senokot S 8.6-50 MG TAB PO SCH (21:23)
[2023-06-14] MEDS: Levothyroxine Sodium 50 MCG TAB PO SCH ×2 (06:04→09:17)
[2023-06-14] MEDS: BuPROPion XL 150 MG ER.TAB PO SCH (09:14)
[2023-06-14] MEDS: Cyanocobalamin (Vitamin B-12) 1,000 MCG TAB PO SCH (09:14)
[2023-06-14] MEDS: Cholecalciferol (Vitamin D3) 400 UNITS TAB PO SCH (09:15)
[2023-06-14] MEDS: hydrALAZINE 25 MG TAB PO SCH ×4 (09:15→20:34)
[2023-06-14] MEDS: Ascorbic Acid 500 mg Chewable Tablet PO SCH (09:15)
[2023-06-14] MEDS: Senokot S 8.6-50 MG TAB PO SCH ×2 (09:15→20:45)
[2023-06-14] MEDS: Zinc Sulfate 220 MG CAP PO SCH (09:16)
[2023-06-14] MEDS: Atorvastatin Calcium 20 MG TAB PO SCH (09:16)
[2023-06-14] MEDS: Escitalopram Oxalate 10 mg Tablet PO SCH (09:16)
[2023-06-14] MEDS: Oxybutynin ER 5 MG TAB PO SCH (09:16)
[2023-06-14] MEDS: Folic Acid 1 MG TAB PO SCH (09:16)
[2023-06-14] MEDS: Donepezil HCl 5 MG TAB PO SCH (09:16)
[2023-06-14] MEDS: Famotidine 20 MG TAB PO SCH (09:16)
[2023-06-14] MEDS: Ferrous Sulfate 325 MG TAB PO SCH (09:16)
[2023-06-14] MEDS: Midodrine HCl 5 MG TAB PO SCH ×2 (09:16→20:41)
[2023-06-14] MEDS: Fludrocortisone Acetate 0.1 MG TAB PO SCH ×2 (09:16→20:34)
[2023-06-14] MEDS: Calcium Carbonate 600 MG + Vit D TAB PO SCH (09:17)
[2023-06-14] MEDS: hydrALAZINE 20 MG/ML VIAL SLOW IVP PRN (11:47)
[2023-06-14] MEDS: Melatonin 3 MG TAB PO SCH (21:00)
[2023-06-15] MEDS: Levothyroxine Sodium 50 MCG TAB PO SCH (06:31)
[2023-06-15] MEDS: Cyanocobalamin (Vitamin B-12) 1,000 MCG TAB PO SCH (08:09)
[2023-06-15] MEDS: Senokot S 8.6-50 MG TAB PO SCH ×2 (08:10→21:05)
[2023-06-15] MEDS: Zinc Sulfate 220 MG CAP PO SCH (08:10)
[2023-06-15] MEDS: hydrALAZINE 25 MG TAB PO SCH ×5 (08:10→21:12)
[2023-06-15] MEDS: Escitalopram Oxalate 10 mg Tablet PO SCH (08:10)
[2023-06-15] MEDS: Fludrocortisone Acetate 0.1 MG TAB PO SCH ×2 (08:10→21:06)
[2023-06-15] MEDS: BuPROPion XL 150 MG ER.TAB PO SCH (08:10)
[2023-06-15] MEDS: Calcium Carbonate 600 MG + Vit D TAB PO SCH (08:10)
[2023-06-15] MEDS: Ascorbic Acid 500 mg Chewable Tablet PO SCH (08:10)
[2023-06-15] MEDS: Atorvastatin Calcium 20 MG TAB PO SCH (08:10)
[2023-06-15] MEDS: Midodrine HCl 5 MG TAB PO SCH ×2 (08:10→21:05)
[2023-06-15] MEDS: Oxybutynin ER 5 MG TAB PO SCH (08:10)
[2023-06-15] MEDS: Donepezil HCl 5 MG TAB PO SCH (08:11)
[2023-06-15] MEDS: Folic Acid 1 MG TAB PO SCH (08:11)
[2023-06-15] MEDS: Famotidine 20 MG TAB PO SCH (08:11)
[2023-06-15] MEDS: Ferrous Sulfate 325 MG TAB PO SCH (08:11)
[2023-06-15] MEDS: Cholecalciferol (Vitamin D3) 400 UNITS TAB PO SCH (08:11)
[2023-06-15] MEDS: Melatonin 3 MG TAB PO SCH (21:05)
[2023-06-15] MEDS: hydrALAZINE 20 MG/ML VIAL SLOW IVP PRN (23:39)
[2023-06-16] MEDS: Levothyroxine Sodium 50 MCG TAB PO SCH (05:41)
[2023-06-16] MEDS: BuPROPion XL 150 MG ER.TAB PO SCH (08:19)
[2023-06-16] MEDS: Midodrine HCl 5 MG TAB PO SCH (08:19)
[2023-06-16] MEDS: Cholecalciferol (Vitamin D3) 400 UNITS TAB PO SCH (08:19)
[2023-06-16] MEDS: Cyanocobalamin (Vitamin B-12) 1,000 MCG TAB PO SCH (08:19)
[2023-06-16] MEDS: Ferrous Sulfate 325 MG TAB PO SCH (08:19)
[2023-06-16] MEDS: Zinc Sulfate 220 MG CAP PO SCH (08:19)
[2023-06-16] MEDS: Ascorbic Acid 500 mg Chewable Tablet PO SCH (08:19)
[2023-06-16] MEDS: Calcium Carbonate 600 MG + Vit D TAB PO SCH (08:19)
[2023-06-16] MEDS: hydrALAZINE 25 MG TAB PO SCH ×2 (08:20→11:46)
[2023-06-16] MEDS: Folic Acid 1 MG TAB PO SCH (08:20)
[2023-06-16] MEDS: Senokot S 8.6-50 MG TAB PO SCH (08:20)
[2023-06-16] MEDS: Escitalopram Oxalate 10 mg Tablet PO SCH (08:20)
[2023-06-16] MEDS: Famotidine 20 MG TAB PO SCH (08:20)
[2023-06-16] MEDS: Fludrocortisone Acetate 0.1 MG TAB PO SCH (08:20)
[2023-06-16] MEDS: Donepezil HCl 5 MG TAB PO SCH (08:20)
[2023-06-16] MEDS: Atorvastatin Calcium 20 MG TAB PO SCH (08:20)
[2023-06-16] MEDS: Oxybutynin ER 5 MG TAB PO SCH (08:20)
[2023-06-16 11:33] VITALS: TEMP 98.7
[2023-06-16 13:41] VITALS: BP 148/96
== END 2023-06-16 15:25 | DRG 682 ==
LOC: ERS 18:28 → SUATTDRO 18:28 → SURG B 23:10 → 2NO 06-08 21:10
PROVIDERS: ADMIT Family Medicine; ATTEND Family Medicine
PROC: 8E0ZXY6 Isolation (ICD-10-PCS; principal; 2023-06-07)
DX: N17.9 Acute kidney failure, unspecified (principal); U07.1 COVID-19; I16.1 Hypertensive emergency; Z79.899 Other long term (current) drug therapy; Z96.643 Presence of artificial hip joint, bilateral; G47.33 Obstructive sleep apnea (adult) (pediatric); E78.5 Hyperlipidemia, unspecified; I95.1 Orthostatic hypotension; F41.9 Anxiety disorder, unspecified; Z83.3 Family history of diabetes mellitus; I49.5 Sick sinus syndrome; E03.9 Hypothyroidism, unspecified; N18.9 Chronic kidney disease, unspecified; I12.9 Hypertensive chronic kidney disease with stage 1 through stage 4 chronic kidney disease, or unspecified chronic kidney disease; D63.1 Anemia in chronic kidney disease
CPT/HCPCS: 36415; 70450; 71045; 72125; 80048; 80053; 81001; 83735; 84100; 84443; 85014; 85018; 85025; 85049; 85610; 85730; 87086; 87635; 93005; 93010; 93306; 96374; J0360; J1160; J1650; J7050; J7120

== ENCOUNTER 2023-08-16 11:41 | Inpatient (IN) | payer MEDICARE ==
[~2023-08-16 11:41] MED LIST: Iopamidol-370 76% 500 ML MDV (1 ML CHARGE) ONE
[2023-08-16 12:52] LABS: #Monocytes 0.2 thou/uL (0.11-0.59); #Neutrophils 7.7 thou/uL (1.40-6.50); %Basophils 0.4 % (0.0-1.0); %Lymphocytes 1.6 % (21.0-51.0); %Monocytes 2.1 % (0.0-10.0); %Neutrophils 95.4 % (42.0-75.0); Hematocrit 39.6 % (36.0-47.0); Hemoglobin 12.5 g/dL (12.0-16.0); Mean Corpuscular HGB CONC 31.6 g/dL (32.0-36.0); Mean Corpuscular Volume 101.3 fl (78.0-98.0); Mean Platelet Volume 9.9 fL (7.4-10.4); Platelet Count 180 10x3/uL (130-400); RBC Distribution Width 12.8 % (11.5-14.5); Red Blood Cell (RBC) Count 3.91 mill/uL (4.20-5.40); White Blood Cell (WBC) Count 8.1 10x3/uL (4.8-10.8)
[2023-08-16 13:12] LABS: Troponin I 0.082 ng/mL (< 0.028)
[2023-08-16 13:25] LABS: ALT (SGPT) 8 U/L (8-55); AST (SGOT) 14 U/L (5-34); Albumin 3.7 g/dL (3.4-4.8); Alkaline Phosphatase 74 U/L (40-110); Anion Gap 17 mmol/L (10-20); BUN (Urea Nitrogen) 25 mg/dL (9.8-20.1); Bilirubin, Total 1.4 mg/dL (0.2-1.2); Calc. Creatinine Clearance 0 mL/min (70-130); Calcium 8.9 mg/dL (7.8-10.44); Carbon Dioxide 20 mmol/L (23-31); Chloride 105 mmol/L (98-107); Estimated GFR 43; Globulin 2.8 g/dL (2.4-3.5); Glucose 95 mg/dL (83-110); Magnesium 1.5 mg/dL (1.6-2.6); Potassium 3.4 mmol/L (3.5-5.1); Protein, Total 6.5 g/dL (5.8-8.1); Sodium 139 mmol/L (136-145)
[2023-08-16 13:44] LABS: INR-International Normal Ratio 1.1; Prothrombin Time 13.8 sec (12.0-14.7)
[2023-08-16 13:45] LABS: PTT 29.4 sec (22.9-36.1)
[2023-08-16] MEDS ORDERED: Potassium Bicarbonate/Cit Ac 20 MEQ TAB ONE (14:19)
[2023-08-16] MEDS ORDERED: Potassium Chloride 20 MEQ TAB ONE (14:19)
[2023-08-16] MEDS ORDERED: Aspirin 325 MG TAB ONE (14:19)
[2023-08-16 17:57] LABS: Troponin I 0.145 ng/mL (< 0.028)
[2023-08-16 21:44] LABS: Troponin I 0.177 ng/mL (< 0.028)
[2023-08-16 22:12] VITALS: BMI 19.1
[2023-08-16] MEDS: Atorvastatin Calcium 40 MG TAB PO SCH (22:26)
[2023-08-17 04:37] LABS: Hematocrit 32.9 % (36.0-47.0); Hemoglobin 10.7 g/dL (12.0-16.0); Manual Diff?? YES; Mean Corpuscular HGB CONC 32.5 g/dL (32.0-36.0); Mean Corpuscular Hemoglobin 31.4 pg (27.0-31.0); Mean Platelet Volume 10.8 fL (7.4-10.4); Platelet Count 174 10x3/uL (130-400); RBC Distribution Width 13.1 % (11.5-14.5); Red Blood Cell (RBC) Count 3.41 mill/uL (4.20-5.40); White Blood Cell (WBC) Count 22.3 10x3/uL (4.8-10.8)
[2023-08-17 05:00] LABS: Anion Gap 15 mmol/L (10-20); BUN (Urea Nitrogen) 35 mg/dL (9.8-20.1); Calc. Creatinine Clearance 24 mL/min (70-130); Calcium 8.3 mg/dL (7.8-10.44); Carbon Dioxide 22 mmol/L (23-31); Cardiac Risk 3.3 (Less than 4.5); Chloride 103 mmol/L (98-107); Cholesterol 140 mg/dl (< 200 Desired); Estimated GFR 33; Glucose 83 mg/dL (83-110); HDL Cholesterol 42 mg/dL (>60 Neg Risk); LDL Cholesterol, Calculated 79 mg/dL; Potassium 4.2 mmol/L (3.5-5.1); Sodium 136 mmol/L (136-145); Triglycerides 95 mg/dL (Less than 150)
[2023-08-17 05:14] LABS: Delete Auto Diff?? YES
[2023-08-17 07:10] LABS: Anisocytosis SLIGHT = 6-15 cells HPF (0-5); Band 30 % (5-11); CellaVision Operator ID LAB.JMM; Lymphocytes 2 % (21-51); Monocytes 2 % (0-10); Myelocyte 1 % (0-0); Neutrophil 65 % (42-75); Ovalocytes SLIGHT = 2-5 cells HPF (0-1); Platelet Adequacy Comment Platelets Normal; Polychromasia SLIGHT = 2-3 cells HPF (0-2); Smudge Cells 1.9 %; Total Cell Count 103
[2023-08-17 07:20] LABS: Mean Corpuscular Volume 96.5 fl (78.0-98.0)
[2023-08-17] MEDS: Aspirin 325 mg Enteric Coated Tablet PO SCH (09:32)
[2023-08-17] MEDS: Enoxaparin 30 MG (0.3 mL) SYRINGE SC SCH (09:33)
[2023-08-17] MEDS ORDERED: Electrolyte Replacement Protocol FS PRN (10:45)
[2023-08-17] MEDS ORDERED: Dextrose 5 % And 0.9 % NaCl 1,000 ML IV SCH (10:45)
[2023-08-17] MEDS ORDERED: Electrolyte Replacement Protocol 1 EACH FS SCH (10:45)
[2023-08-17 10:47] LABS: Bilirubin Negative (Negative); Blood, Urine 1+ (Negative); CAUTI Indications for Culture Alt mental st,lethar; Clarity Extra Turbid (Clear); Glucose, Urine (Dipstick) Normal (Negative); Ketone, Urine Negative (Negative); Leukocyte 500 Leu/uL (Negative); Nitrite Negative (Negative); Protein, Urine (Dipstick) 30 mg/dL (Neg-Trace); Specific Gravity, Urine 1.043 (1.002-1.036); Urobilinogen Normal mg/dL (Less than 2); WBC/HPF Greater than 50 HPF (0-3); pH, Urine 5.5 (5.0-9.0)
[2023-08-17] MEDS ORDERED: Albuterol 2.5 MG (3 mL) NEB NEB PRN (10:49)
[2023-08-17 10:59] LABS: Magnesium 1.5 mg/dL (1.6-2.6)
[2023-08-17 11:06] LABS: Bacteria/HPF 2+ HPF (None Seen); Renal Epithelial 0-3 HPF (None Seen); Transitional Epithelial 0-3 HPF (None Seen)
[2023-08-17 11:08] LABS: Urine Culture Reflex Yes Yes
[2023-08-17] MEDS: hydrALAZINE 25 MG TAB PO SCH (13:00)
[2023-08-17] MEDS: Furosemide 40 MG TAB PO SCH (13:00)
[2023-08-17] MEDS: Albumin 25% 25 GM (100 mL) BOT IVPB SCH (13:02)
[2023-08-17] MEDS: cefTRIAXone\\ROCEPHIN 1 GM in Sodium Chloride 0.9% 100 ML IVPB SCH (14:14)
[2023-08-17] MEDS: Magnesium 2 GM/50 ML(in water) 2 GM in Premix 1 BAG IVPB SCH (15:28)
[2023-08-17] MEDS ORDERED: CRANBERRY FRUIT EXTRACT 200 MG PO SCH (21:00)
[2023-08-17] MEDS: Midodrine HCl 5 MG TAB PO SCH (21:08)
[2023-08-18 04:58] LABS: Hematocrit 33.9 % (36.0-47.0); Hemoglobin 11.1 g/dL (12.0-16.0); Manual Diff?? YES; Mean Corpuscular HGB CONC 32.7 g/dL (32.0-36.0); Mean Corpuscular Hemoglobin 32.6 pg (27.0-31.0); Mean Corpuscular Volume 99.4 fl (78.0-98.0); Mean Platelet Volume 10.5 fL (7.4-10.4); Platelet Count 169 10x3/uL (130-400); RBC Distribution Width 12.9 % (11.5-14.5); Red Blood Cell (RBC) Count 3.41 mill/uL (4.20-5.40); White Blood Cell (WBC) Count 19.2 10x3/uL (4.8-10.8)
[2023-08-18 05:00] LABS: Delete Auto Diff?? YES
[2023-08-18 05:30] LABS: Band 18 % (5-11); CellaVision Operator ID lab.abc; Eosinophils 1 % (0-10); Lymphocytes 1 % (21-51); Monocytes 3 % (0-10); Neutrophil 77 % (42-75); Platelet Adequacy Comment Platelets Normal; RBC Morphology Within Normal Limits; Total Cell Count 101
[2023-08-18 05:55] LABS: Anion Gap 14 mmol/L (10-20); BUN (Urea Nitrogen) 45 mg/dL (9.8-20.1); Calc. Creatinine Clearance 25 mL/min (70-130); Calcium 8.7 mg/dL (7.8-10.44); Carbon Dioxide 24 mmol/L (23-31); Chloride 104 mmol/L (98-107); Estimated GFR 34; Glucose 66 mg/dL (83-110); Magnesium 2.1 mg/dL (1.6-2.6); Potassium 3.6 mmol/L (3.5-5.1); Sodium 138 mmol/L (136-145)
[2023-08-18] MEDS: Levothyroxine Sodium 50 MCG TAB PO SCH (06:41)
[2023-08-18] MEDS: Cyanocobalamin (Vitamin B-12) 1,000 MCG TAB PO SCH (09:15)
[2023-08-18] MEDS: Ferrous Sulfate 325 MG TAB PO SCH (09:31)
[2023-08-18] MEDS: Fludrocortisone Acetate 0.1 MG TAB PO SCH (09:31)
[2023-08-18] MEDS: Oxybutynin ER 5 MG TAB PO SCH (09:34)
[2023-08-18] MEDS: BuPROPion XL 150 MG ER.TAB PO SCH (09:34)
[2023-08-18] MEDS: Famotidine 20 MG TAB PO SCH (09:34)
[2023-08-18] MEDS: Calcium Carbonate 600 MG + Vit D TAB PO SCH (09:34)
[2023-08-18] MEDS: Escitalopram Oxalate 10 mg Tablet PO SCH (09:37)
[2023-08-18] MEDS: Amlodipine 5 MG TAB PO SCH (13:49)
[2023-08-19 05:15] LABS: #Basophils 0.1 thou/uL (0.0-0.2); #Eosinphils 0.2 thou/uL (0.0-0.7); #Monocytes 0.8 thou/uL (0.11-0.59); #Neutrophils 10.6 thou/uL (1.40-6.50); %Basophils 0.5 % (0.0-1.0); %Eosinophils 1.4 % (0.0-10.0); %Lymphocytes 4.2 % (21.0-51.0); %Monocytes 6.6 % (0.0-10.0); %Neutrophils 86.7 % (42.0-75.0); Hematocrit 37.2 % (36.0-47.0); Mean Corpuscular HGB CONC 32.3 g/dL (32.0-36.0); Mean Corpuscular Hemoglobin 31.5 pg (27.0-31.0); Mean Corpuscular Volume 97.6 fl (78.0-98.0); Mean Platelet Volume 10.5 fL (7.4-10.4); Platelet Count 216 10x3/uL (130-400); RBC Distribution Width 12.6 % (11.5-14.5); Red Blood Cell (RBC) Count 3.81 mill/uL (4.20-5.40); White Blood Cell (WBC) Count 12.2 10x3/uL (4.8-10.8)
[2023-08-19 05:55] LABS: Anion Gap 15 mmol/L (10-20); BUN (Urea Nitrogen) 35 mg/dL (9.8-20.1); Calc. Creatinine Clearance 30 mL/min (70-130); Calcium 9.3 mg/dL (7.8-10.44); Carbon Dioxide 24 mmol/L (23-31); Chloride 105 mmol/L (98-107); Estimated GFR 43; Glucose 83 mg/dL (83-110); Potassium 3.8 mmol/L (3.5-5.1); Sodium 140 mmol/L (136-145)
[2023-08-19] MEDS: Amlodipine 5 MG TAB PO SCH ×2 (09:57→20:06)
[2023-08-19] MEDS: hydrALAZINE 25 MG TAB PO SCH (14:59)
[2023-08-20 05:06] LABS: #Eosinphils 0.1 thou/uL (0.0-0.7); #Monocytes 0.7 thou/uL (0.11-0.59); #Neutrophils 5.6 thou/uL (1.40-6.50); %Basophils 0.4 % (0.0-1.0); %Eosinophils 1.6 % (0.0-10.0); %Lymphocytes 8.4 % (21.0-51.0); %Monocytes 9.8 % (0.0-10.0); %Neutrophils 79.4 % (42.0-75.0); Hematocrit 38.6 % (36.0-47.0); Hemoglobin 12.5 g/dL (12.0-16.0); Mean Corpuscular HGB CONC 32.4 g/dL (32.0-36.0); Mean Corpuscular Hemoglobin 31.7 pg (27.0-31.0); Mean Platelet Volume 10.3 fL (7.4-10.4); Platelet Count 247 10x3/uL (130-400); RBC Distribution Width 12.4 % (11.5-14.5); Red Blood Cell (RBC) Count 3.94 mill/uL (4.20-5.40); White Blood Cell (WBC) Count 7.1 10x3/uL (4.8-10.8)
[2023-08-20 05:29] LABS: Anion Gap 12 mmol/L (10-20); BUN (Urea Nitrogen) 27 mg/dL (9.8-20.1); Calc. Creatinine Clearance 33 mL/min (70-130); Calcium 9.8 mg/dL (7.8-10.44); Carbon Dioxide 28 mmol/L (23-31); Chloride 104 mmol/L (98-107); Estimated GFR 47; Glucose 90 mg/dL (83-110); Sodium 140 mmol/L (136-145)
[2023-08-20] MEDS ORDERED: OLANZapine 10 MG VIAL IM SCH (19:45)
[2023-08-20] MEDS: Lorazepam 0.5 MG TAB PO SCH (21:37)
[2023-08-20] MEDS: Lorazepam 2 MG/ML VIAL SLOW IVP SCH (22:13)
[2023-08-21 12:23] LABS: Magnesium 1.8 mg/dL (1.6-2.6)
[2023-08-21] MEDS: Magnesium 2 GM/50 ML(in water) 2 GM in Premix 1 BAG IVPB SCH (14:40)
[2023-08-22 04:48] LABS: Anion Gap 11 mmol/L (10-20); BUN (Urea Nitrogen) 22 mg/dL (9.8-20.1); Calc. Creatinine Clearance 34 mL/min (70-130); Calcium 9.3 mg/dL (7.8-10.44); Carbon Dioxide 29 mmol/L (23-31); Chloride 102 mmol/L (98-107); Estimated GFR 49; Glucose 85 mg/dL (83-110); Potassium 3.6 mmol/L (3.5-5.1); Sodium 138 mmol/L (136-145)
[2023-08-23 06:04] LABS: Anion Gap 12 mmol/L (10-20); BUN (Urea Nitrogen) 23 mg/dL (9.8-20.1); Calc. Creatinine Clearance 31 mL/min (70-130); Calcium 9.3 mg/dL (7.8-10.44); Carbon Dioxide 27 mmol/L (23-31); Chloride 103 mmol/L (98-107); Estimated GFR 44; Glucose 102 mg/dL (83-110); Potassium 3.6 mmol/L (3.5-5.1); Sodium 138 mmol/L (136-145)
[2023-08-24 07:07] LABS: Anion Gap 14 mmol/L (10-20); BUN (Urea Nitrogen) 22 mg/dL (9.8-20.1); Calc. Creatinine Clearance 32 mL/min (70-130); Calcium 9.2 mg/dL (7.8-10.44); Carbon Dioxide 25 mmol/L (23-31); Chloride 104 mmol/L (98-107); Estimated GFR 45; Glucose 88 mg/dL (83-110); Potassium 3.9 mmol/L (3.5-5.1); Sodium 139 mmol/L (136-145)
[2023-08-25 07:00] LABS: Anion Gap 13 mmol/L (10-20); BUN (Urea Nitrogen) 21 mg/dL (9.8-20.1); Calc. Creatinine Clearance 33 mL/min (70-130); Calcium 9.4 mg/dL (7.8-10.44); Carbon Dioxide 28 mmol/L (23-31); Chloride 102 mmol/L (98-107); Estimated GFR 48; Glucose 85 mg/dL (83-110); Sodium 139 mmol/L (136-145)
[2023-08-26 07:40] LABS: Anion Gap 14 mmol/L (10-20); BUN (Urea Nitrogen) 23 mg/dL (9.8-20.1); Calc. Creatinine Clearance 33 mL/min (70-130); Calcium 9.7 mg/dL (7.8-10.44); Carbon Dioxide 27 mmol/L (23-31); Chloride 102 mmol/L (98-107); Estimated GFR 47; Glucose 83 mg/dL (83-110); Potassium 3.6 mmol/L (3.5-5.1); Sodium 139 mmol/L (136-145)
[2023-08-26 08:24] VITALS: TEMP 98.4
[2023-08-26 11:56] VITALS: BP 134/78
[2023-08-27] MEDS ORDERED: Enoxaparin 40 MG (0.4 mL) SYRINGE SC SCH (09:00)
== END 2023-08-26 17:15 | DRG 682 ==
LOC: ERS 11:41 → INTOOBSV 14:07 → ERHOLD 14:07 → 2SE 21:05 → OBSVTOIN 08-17 10:32 → T4-A 08-25 20:44
PROVIDERS: ADMIT Internal Medicine; ATTEND Family Medicine
PROC: 4A00X4Z Measurement of Central Nervous Electrical Activity, External Approach (ICD-10-PCS; principal; 2023-08-17)
PROC: 30233J1 Transfusion of Nonautologous Serum Albumin into Peripheral Vein, Percutaneous Approach (ICD-10-PCS; 2023-08-17)
DX: N17.9 Acute kidney failure, unspecified (principal); G93.41 Metabolic encephalopathy; J98.11 Atelectasis; N39.0 Urinary tract infection, site not specified; I12.9 Hypertensive chronic kidney disease with stage 1 through stage 4 chronic kidney disease, or unspecified chronic kidney disease; E03.9 Hypothyroidism, unspecified; Z66 Do not resuscitate; G47.33 Obstructive sleep apnea (adult) (pediatric); D63.1 Anemia in chronic kidney disease; N18.30 Chronic kidney disease, stage 3 unspecified; R29.810 Facial weakness; I49.5 Sick sinus syndrome; I27.20 Pulmonary hypertension, unspecified; N28.89 Other specified disorders of kidney and ureter; E87.6 Hypokalemia; E83.42 Hypomagnesemia; D72.829 Elevated white blood cell count, unspecified; G93.89 Other specified disorders of brain; I95.1 Orthostatic hypotension; Z96.643 Presence of artificial hip joint, bilateral; Z88.8 Allergy status to other drugs, medicaments and biological substances; Z79.890 Hormone replacement therapy; Z98.890 Other specified postprocedural states; Z79.899 Other long term (current) drug therapy; Z85.3 Personal history of malignant neoplasm of breast; Z95.0 Presence of cardiac pacemaker; Z90.11 Acquired absence of right breast and nipple; Z90.12 Acquired absence of left breast and nipple
CPT/HCPCS: 36415; 36416; 70450; 70496; 70498; 70551; 71045; 71260; 80048; 80053; 80061; 81001; 83735; 83880; 84100; 84484; 85025; 85610; 85730; 87086; 93005; 94760; 95816; 95819; 96372; G0378; J0696; J1650; J3475; J3490; P9047; Q9967